=== PATIENT | male | born 1950 | race Two or more races ===

== ENCOUNTER 2023-06-21 10:44 | Outpatient (AMB) | payer MEDICARE, SELFPAY ==
--- NOTE | 2023-06-21 10:52 | HO.NEPHOV ---
HPI HPI Comments History of Present Illness Details I had the privilege of seeing Nikko in follow-up of his mild CKD and hypertension. He is on home oxygen. He is closely followed up by his pulmonary physicians. He still has shortness of breath on exertion. He does not have any orthostatic symptoms. His urine output is good. His blood pressure has been at goal. He maintains low-sodium diet and keep up with good hydration. He denies any chest pain, pedal edema, hematuria, nausea vomiting or diarrhea. He avoids nonsteroidal anti-inflammatories. [facility] Medical History (Updated 07/03/23 @ 14:39 by Juan Carlos Kinney MD) Hypertension Chronic kidney disease, stage 3a Surgical History (Updated 06/21/23 @ 11:01 by Lola Newsome MA) Hx of CABG History of foot surgery History of knee surgery Family History Brother Diabetes Father Cancer Mother Cancer Social History (Updated 06/21/23 @ 11:02 by Lola Newsome MA) Alcohol intake: never Patient Tobacco Use Status: Former Tobacco user Vital Signs 06/21/23 10:56 Height 5 ft 9 in Weight 225 lb 8 oz BMI 33.3 BP 94/50 L Blood Pressure Location Rt brachial Position Sitting Pulse 90 Pulse Source Pulse Oximeter Physical Exam Vital Signs: Last Vital Signs Pulse 90 06/21/23 10:56 BP 94/50 L 06/21/23 10:56 BMI result Body Mass Index 33.3 Const General: comfortable and no acute distress Orientation/consciousness: patient oriented x3 HEENT Head: Yes normocephalic Mouth: Normal oral and palatal mucosa present Eyes EOM: EOMs intact bilaterally Neck Neck: Yes supple Resp Auscultation: diminished lung sounds Cardio Jugular venous distension: no JVD Rate: regular rate GI Palpation (GI): Soft to palpation Auscultation: normal bowel sounds General: Yes no CVA tenderness Back/Spine/Pelvis Back: no CVA tenderness Skin General skin exam: no rashes or lesions noted Neuro General: patient oriented x3 and moves all extremities Extrem General: Yes no pedal edema Assessment & Plan Assessment & Plan (1) Hypertension: Code(s): I10 - Essential (primary) hypertension Qualifiers: Hypertension type: primary hypertension Qualified Code(s): I10 - Essential (primary) hypertension (2) Chronic kidney disease, stage 3a: Code(s): N18.31 - Chronic kidney disease, stage 3a Plan Nikko has mild CKD. His renal functions are stable. His volume status is optimal. He can continue Lasix 40 mg twice daily. He monitors his blood sugar very closely. He avoids nonsteroidal anti-inflammatories. His hemodynamics are stable. I did not make any medication changes today. Follow-up lab work ordered. Answered all questions. Orders: Orders Calcium 06/21/23 I10 - Essential (primary) hypertension, N18.31 - Chronic kidney disease, stage 3a Protein Creatinine Ratio, Ur 06/21/23 I10 - Essential (primary) hypertension, N18.31 - Chronic kidney disease, stage 3a Creatinine 06/21/23 I10 - Essential (primary) hypertension, N18.31 - Chronic kidney disease, stage 3a Blood Urea Nitrogen 06/21/23 I10 - Essential (primary) hypertension, N18.31 - Chronic kidney disease, stage 3a Electrolytes 06/21/23 I10 - Essential (primary) hypertension, N18.31 - Chronic kidney disease, stage 3a Coding Level of Care Code Est Pt Level 3 (52352) Diagnoses Primary hypertension I10 Hypertension type: primary hypertension Chronic kidney disease, stage 3a N18.31 Results Reviewed Nephrology Results: No Data to Display
[2023-06-21 10:56] VITALS: BP 94/50; PULSE 90; BMI 33.3
== END 2023-06-21 11:36 | disposition home or self-care (01) ==
PROVIDERS: Visit Provider Internal Medicine Nephrology
DX: I10 Essential (primary) hypertension (principal); N18.31 Chronic kidney disease, stage 3a
CPT/HCPCS: 99213

== ENCOUNTER → 2023-06-21 10:44 | Outpatient (BNVA) | payer MEDICARE, SELFPAY | PROVIDERS: Visit Provider Internal Medicine Nephrology | DX: I12.9 Hypertensive chronic kidney disease with stage 1 through stage 4 chronic kidney disease, or unspecified chronic kidney disease (principal); N18.31 Chronic kidney disease, stage 3a | CPT/HCPCS: 99212 ==

== ENCOUNTER 2023-12-11 10:29 | Outpatient (REF) | payer MEDICARE, SELFPAY ==
[2023-12-11 18:35] LABS: Anion Gap 16 (12-20); Blood Urea Nitrogen 21 mg/dL (9-16); Calcium 9.3 mg/dL (8.4-10.2); Carbon Dioxide 31 mmol/L (22-29); Chloride 98 mmol/L (96-108); Estimated Glomerular Filt Rate > 60; Potassium 4.5 mmol/L (3.3-5.1); Sodium 140 mmol/L (135-145)
[2023-12-11 18:39] LABS: Creatinine Urine 133.23 mg/dL; Protein/Creatinine Ratio, Ur 0.08 (<0.2); Total Protein Urine Random 11 mg/dL (<12)
== END 2023-12-11 10:30 | disposition home or self-care (01) ==
LOC: HO.HKASLDS 10:29
PROVIDERS: Visit Provider Internal Medicine Nephrology
DX: I12.9 Hypertensive chronic kidney disease with stage 1 through stage 4 chronic kidney disease, or unspecified chronic kidney disease (principal); N18.31 Chronic kidney disease, stage 3a
CPT/HCPCS: 36415; 80051; 82310; 82565; 82570; 84156; 84520

== ENCOUNTER 2023-12-21 09:48 | Outpatient (AMB) | payer MEDICARE, SELFPAY ==
--- NOTE | 2023-12-21 09:58 | HO.NEPHOV_ITS ---
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 He is on home oxygen. He is closely followed up by his pulmonary physicians. He still has shortness of breath on exertion. He denies not have any orthostatic symptoms. His urine output is good. His blood pressure has been at goal. He maintains low-sodium diet and keep up with good hydration. He denies any chest pain, pedal edema, hematuria, nausea vomiting or diarrhea. He avoids nonsteroidal anti-inflammatories. Walking to office this AM he had a fall but had not hit his head. [facility] Medical History (Updated 07/03/23 @ 14:39 by Juan Carlos Kinney MD) Hypertension Chronic kidney disease, stage 3a Surgical History Hx of CABG History of foot surgery History of knee surgery Family History Brother Diabetes Father Cancer Mother Cancer Social History Alcohol intake: never Patient Tobacco Use Status: Former Tobacco user Review of Systems Const All systems reviewed & are unremarkable except as noted in HPI and below Physical Exam Vital Signs: Last Vital Signs Pulse 90 12/21/23 10:01 BP 100/54 L 12/21/23 10:01 Pulse Ox 94 12/21/23 10:01 Oxygen Delivery Method Room Air 12/21/23 10:01 Const Other: On O2 General: comfortable and no acute distress Orientation/consciousness: patient oriented x3 HEENT Head: Yes normocephalic Mouth: Normal oral and palatal mucosa present Eyes EOM: EOMs intact bilaterally Neck Neck: Yes supple Resp Auscultation: clear to auscultation bilaterally Cardio Jugular venous distension: no JVD Rate: regular rate GI Palpation (GI): Soft to palpation Auscultation: normal bowel sounds General: Yes no CVA tenderness Back/Spine/Pelvis Back: no CVA tenderness Skin General skin exam: no rashes or lesions noted Neuro General: patient oriented x3 and moves all extremities Extrem General: Yes no pedal edema Results Reviewed Nephrology Results: Sodium 140 mmol/L (135-145) 12/11/23 Potassium 4.5 mmol/L (3.3-5.1) 12/11/23 Chloride 98 mmol/L (96-108) 12/11/23 Carbon Dioxide 31 mmol/L (22-29) H 12/11/23 BUN 21 mg/dL (9-16) H 12/11/23 Creatinine 1.19 mg/dL (0.5-1.4) 12/11/23 Calcium 9.3 mg/dL (8.4-10.2) 12/11/23 Urine Creatinine 133.23 mg/dL 12/11/23 Protein/Creatinin Ratio 0.08 (<0.2) 12/11/23 Assessment & Plan Assessment & Plan (1) Chronic kidney disease, stage 3a: Code(s): N18.31 - Chronic kidney disease, stage 3a Category: Medical (2) Hypertension: Code(s): I10 - Essential (primary) hypertension Category: Medical Qualifiers: Hypertension type: primary hypertension Qualified Code(s): I10 - Essential (primary) hypertension Plan Nikko has mild CKD. His renal functions are stable. His volume status is optimal. He can continue Lasix 40 mg twice daily. He monitors his blood sugar very closely. He avoids nonsteroidal anti-inflammatories. His hemodynamics are stable. I did not make any medication changes today. Follow-up lab work ordered. Asked to go to ER for fall eval but refused. Answered all questions. Orders: Orders Creatinine 10 Months I10 - Essential (primary) hypertension, N18.31 - Chronic kidney disease, stage 3a Blood Urea Nitrogen 10 Months I10 - Essential (primary) hypertension, N18.31 - Chronic kidney disease, stage 3a Electrolytes 10 Months I10 - Essential (primary) hypertension, N18.31 - Chronic kidney disease, stage 3a Coding Level of Care Code Est Pt Level 4 (44866) Diagnoses Chronic kidney disease, stage 3a N18.31 Primary hypertension I10 Hypertension type: primary hypertension
[2023-12-21 10:01] VITALS: BP 100/54; PULSE 90; O2SAT 94
== END 2023-12-21 10:25 | disposition home or self-care (01) ==
PROVIDERS: PCP Nurse Practitioner Primary Care; Visit Provider Internal Medicine Nephrology
DX: N18.31 Chronic kidney disease, stage 3a (principal); I10 Essential (primary) hypertension
CPT/HCPCS: 99214

== ENCOUNTER → 2023-12-21 09:48 | Outpatient (BNVA) | payer MEDICARE, SELFPAY | PROVIDERS: PCP Nurse Practitioner Primary Care; Visit Provider Internal Medicine Nephrology | DX: I12.9 Hypertensive chronic kidney disease with stage 1 through stage 4 chronic kidney disease, or unspecified chronic kidney disease (principal); N18.31 Chronic kidney disease, stage 3a | CPT/HCPCS: 99212 ==